=== PATIENT | male | born 1955 | race Caucasian/White ===

== ENCOUNTER 2017-07-30 15:02 | Inpatient (IN) | payer MEDICAID ==
[~2017-07-30] VITALS: Ht 167.6 cm; Wt 120.1 kg
[2017-07-30] MEDS ORDERED: ALBUTEROL SULFATE 2.5 MG/3 ML ONE (15:42)
[2017-07-30 15:47] LABS: HEMATOCRIT 49.6 % (39.2-51.8); HEMOGLOBIN 16.7 g/dL (13.7-18.0); WHITE BLOOD COUNT 13.3 x10^3/uL (3.4-10)
[2017-07-30] MEDS ORDERED: HYDR-3342 PO (15:55)
[2017-07-30] MEDS ORDERED: ALLO300T PO (15:55)
[2017-07-30] MEDS ORDERED: ATOR-2 PO (15:55)
[2017-07-30] MEDS ORDERED: LISI40TA PO (15:55)
[2017-07-30] MEDS ORDERED: ASPI-496 PO (15:55)
[2017-07-30] MEDS ORDERED: ATEN1TAB4 PO (15:55)
[2017-07-30 15:59] LABS: BLOOD UREA NITROGEN 42 mg/dL (7-18)
[2017-07-30] MEDS ORDERED: SPIR25TA3 PO (16:00)
[2017-07-30] MEDS ORDERED: ALBUTEROL SULFATE 2.5 MG/3 ML NPPB ONE (16:00)
[2017-07-30 16:07] LABS: IS PT STATUS REG ER OR PRE ER? YES
[2017-07-30] MEDS ORDERED: FUROSEMIDE 40 MG/4 ML IV ONE (17:30)
[2017-07-30] MEDS ORDERED: FUROSEMIDE 40 MG/4 ML ONE (17:51)
[2017-07-30] MEDS ORDERED: BISACODYL 10 MG SUPP PR PRN (18:30)
[2017-07-30] MEDS ORDERED: POTASSIUM CHLORIDE 20 MEQ TAB.ER.PRT PO ONE (18:30)
[2017-07-30] MEDS ORDERED: ONDANSETRON 2MG/ML, 2ML IVPush PRN (18:30)
[2017-07-30] MEDS ORDERED: POLYETHYLENE GLYCOL 17 GM PACKET PO PRN (18:30)
[2017-07-30] MEDS ORDERED: ACETAMINOPHEN 325 MG TABLET PO PRN (18:30)
[2017-07-30] MEDS ORDERED: hydrALAzine 20 MG/ML, 1ML IV PRN (20:00)
[2017-07-30 20:52] VITALS: BP 144/100
[2017-07-30] MEDS: ATORVASTATIN 80 MG TABLET PO SCH (21:09)
[2017-07-30] MEDS: HEPARIN 5,000 UNITS/ML, 1ML SQ SCH (21:09)
[2017-07-30] MEDS: CARVEDILOL 12.5 MG TABLET PO SCH (21:09)
[2017-07-30 22:39] LABS: IS PT STATUS REG ER OR PRE ER? NO
[2017-07-30] MEDS: LISINOPRIL 20 MG TABLET PO SCH (23:03)
[2017-07-30] MEDS: SODIUM CHLORIDE FLUSH 10ML SYR IVF SCH (23:04)
[2017-07-30] MEDS ORDERED: POTASSIUM CHLORIDE 20 MEQ TAB.ER.PRT ONE (23:07)
[2017-07-30 23:09] LABS: PATH.CAST-FLAG NOT PRESENT; SPERM-FLAG NOT PRESENT; SRC-FLAG NOT PRESENT; XTAL-FLAG NOT PRESENT; YLC-FLAG NOT PRESENT
[2017-07-30] MEDS ORDERED: MAGNESIUM SULFATE PMX 2GM/50ML 50 ML IV ONE (23:30)
[2017-07-31 03:49] VITALS: BP 96/63
[2017-07-31] MEDS: HEPARIN 5,000 UNITS/ML, 1ML SQ SCH ×3 (03:50→18:01)
[2017-07-31 05:16] LABS: HEMATOCRIT 46.1 % (39.2-51.8); HEMOGLOBIN 15.5 g/dL (13.7-18.0)
[2017-07-31 05:35] LABS: ASPARTATE AMINO TRANSFERASE 23 U/L (15-37); BLOOD UREA NITROGEN 45 mg/dL (7-18)
[2017-07-31 05:37] LABS: IS PT STATUS REG ER OR PRE ER? NO
[2017-07-31 05:44] VITALS: BP 88/57
[2017-07-31] MEDS: CARVEDILOL 12.5 MG TABLET PO SCH ×2 (05:44→18:02)
[2017-07-31] MEDS ORDERED: PNEUMOCOCCAL 23 VACCINE IM-VACC ONE (06:30)
[2017-07-31 07:25] VITALS: BP 106/68
[2017-07-31] MEDS: ASPIRIN 81 MG TABLET EC PO SCH (07:54)
[2017-07-31] MEDS: FUROSEMIDE 20 MG/2 ML IV SCH ×2 (07:54→18:01)
[2017-07-31] MEDS: LISINOPRIL 20 MG TABLET PO SCH ×2 (07:55→21:35)
[2017-07-31] MEDS: ALLOPURINOL 100 MG TABLET PO SCH (07:55)
[2017-07-31] MEDS: SENNA/DOCUSATE TABLET PO SCH (07:55)
[2017-07-31] MEDS ORDERED: POTASSIUM CHLORIDE 20 MEQ TAB.ER.PRT PO SCH (08:00)
[2017-07-31] MEDS: SODIUM CHLORIDE FLUSH 10ML SYR IVF SCH ×2 (08:01→21:35)
[2017-07-31] MEDS ORDERED: LISINOPRIL 20 MG TABLET PO SCH (09:00)
[2017-07-31 15:16] VITALS: BP 130/86
[2017-07-31 17:59] VITALS: BP 138/90
[2017-07-31 19:40] VITALS: BP 124/77
[2017-07-31] MEDS: ATORVASTATIN 80 MG TABLET PO SCH (21:35)
[2017-08-01 02:32] VITALS: BP 99/57
[2017-08-01] MEDS: HEPARIN 5,000 UNITS/ML, 1ML SQ SCH ×3 (04:31→17:56)
[2017-08-01 04:46] LABS: HEMATOCRIT 46.5 % (39.2-51.8); HEMOGLOBIN 15.6 g/dL (13.7-18.0); WHITE BLOOD COUNT 10.7 x10^3/uL (3.4-10)
[2017-08-01 04:58] LABS: BLOOD UREA NITROGEN 50 mg/dL (7-18)
[2017-08-01] MEDS: CARVEDILOL 12.5 MG TABLET PO SCH ×2 (06:19→17:56)
[2017-08-01] MEDS: ASPIRIN 81 MG TABLET EC PO SCH (08:10)
[2017-08-01] MEDS: SENNA/DOCUSATE TABLET PO SCH (08:10)
[2017-08-01] MEDS: SODIUM CHLORIDE FLUSH 10ML SYR IVF SCH ×2 (08:11→20:40)
[2017-08-01] MEDS ORDERED: REGADENOSON 0.4 MG/5 ML SYRINGE ONE (08:23)
[2017-08-01 08:34] VITALS: BP 99/68
[2017-08-01] MEDS: ALLOPURINOL 100 MG TABLET PO SCH (10:54)
[2017-08-01 14:12] VITALS: BP 119/81
[2017-08-01 17:57] VITALS: BP 130/82
[2017-08-01 18:20] LABS: BLOOD UREA NITROGEN 52 mg/dL (7-18)
[2017-08-01 19:49] VITALS: BP 106/70
[2017-08-01] MEDS: ATORVASTATIN 80 MG TABLET PO SCH (20:40)
[2017-08-02 01:31] VITALS: BP 106/65
[2017-08-02] MEDS: HEPARIN 5,000 UNITS/ML, 1ML SQ SCH ×2 (03:43→10:29)
[2017-08-02 05:39] LABS: HEMATOCRIT 47.4 % (39.2-51.8); WHITE BLOOD COUNT 10.4 x10^3/uL (3.4-10)
[2017-08-02] MEDS: CARVEDILOL 12.5 MG TABLET PO SCH (05:46)
[2017-08-02 06:06] LABS: BLOOD UREA NITROGEN 51 mg/dL (7-18)
[2017-08-02 07:52] VITALS: BP 117/69
[2017-08-02] MEDS: SENNA/DOCUSATE TABLET PO SCH (09:00)
[2017-08-02 09:46] VITALS: BP 116/71
[2017-08-02] MEDS: ASPIRIN 81 MG TABLET EC PO SCH (10:28)
[2017-08-02] MEDS: ALLOPURINOL 100 MG TABLET PO SCH (10:28)
[2017-08-02] MEDS: SODIUM CHLORIDE FLUSH 10ML SYR IVF SCH (10:28)
[2017-08-02] MEDS ORDERED: CARV6.2512 PO (11:41)
[2017-08-02] MEDS ORDERED: CARVEDILOL 6.25 MG TABLET PO SCH (18:00)
== END 2017-08-02 16:00 | disposition home or self-care (01) | DRG 291 ==
LOC: ED 18:20 → EDIP 18:35 → 5SO 18:50 → DCLOUNGE 08-02 15:31
PROVIDERS: ADMIT Hospitalist; ATTEND Hospitalist
PROC: 5A09457 Assistance with Respiratory Ventilation, 24-96 Consecutive Hours, Continuous Positive Airway Pressure (ICD-10-PCS; principal; 2017-07-31)
DX: I13.0 Hypertensive heart and chronic kidney disease with heart failure and stage 1 through stage 4 chronic kidney disease, or unspecified chronic kidney disease (principal); I50.33 Acute on chronic diastolic (congestive) heart failure; N17.0 Acute kidney failure with tubular necrosis; J96.11 Chronic respiratory failure with hypoxia; Z68.41 Body mass index [BMI] 40.0-44.9, adult; J98.11 Atelectasis; D72.829 Elevated white blood cell count, unspecified; E87.5 Hyperkalemia; E78.5 Hyperlipidemia, unspecified; E66.9 Obesity, unspecified; E87.6 Hypokalemia; F17.210 Nicotine dependence, cigarettes, uncomplicated; G47.33 Obstructive sleep apnea (adult) (pediatric); J44.9 Chronic obstructive pulmonary disease, unspecified; N18.9 Chronic kidney disease, unspecified; Z82.3 Family history of stroke; Z82.49 Family history of ischemic heart disease and other diseases of the circulatory system; Z82.5 Family history of asthma and other chronic lower respiratory diseases; Z85.828 Personal history of other malignant neoplasm of skin
CPT/HCPCS: 36415; 71010; 76770; 78452; 78582; 80048; 80053; 80061; 81001; 82040; 82570; 83735; 83880; 84156; 84439; 84443; 84484; 85025; 85379; 85610; 90732; 93005; 93017; 93306; 94640; 96374; J1644; J1940; J2785; J7613; A9502; A9540; A9558; C9898; J3475